=== PATIENT | male | born 1935 | race Caucasian/White ===

== ENCOUNTER 2018-08-27 10:00 | Outpatient (RCR) | payer MEDICARE | END 2018-08-27 11:00 | disposition home or self-care (01) | LOC: SPEECH 10:00 | DX: R13.12 Dysphagia, oropharyngeal phase (principal) | CPT/HCPCS: G8997-GN ==

== ENCOUNTER 2019-01-30 19:06 | Inpatient (IN) | payer MEDICARE ==
[~2019-01-30] VITALS: Ht 180.3 cm; Wt 90.0 kg
[2019-01-31] MEDS ORDERED: BACITRACIN3.5 GM OP (13:42)
[2019-01-31] MEDS ORDERED: CASTOR OIL 1 ML1 ML TOP (13:45)
[2019-01-31] MEDS ORDERED: ACETAMINOPHEN-H1 TA2 PO (13:47)
[2019-01-31] MEDS ORDERED: TOPROL XL 25MG25 MG PO (13:47)
[2019-01-31] MEDS ORDERED: ASPIRIN 81M81 MG/TA2 PO (13:51)
[2019-01-31] MEDS ORDERED: LIPITOR 10M10 MG/TAB PO (13:52)
[2019-01-31] MEDS ORDERED: PROSCAR PO (13:54)
[2019-01-31] MEDS ORDERED: CALCIUM PLUS1 TA1 PO (13:54)
[2019-01-31] MEDS ORDERED: COZAAR100 MG PO (13:55)
[2019-01-31] MEDS ORDERED: INTUNIV2 MG PO (13:55)
[2019-01-31] MEDS ORDERED: DITROPAN XL 5MG5 M1 PO (13:56)
[2019-01-31] MEDS ORDERED: VITAMIN C PURE500 M1 PO (13:57)
[2019-01-31 16:42] LABS: EOS # 0.2 (0.04-0.40); EOS % 1.4 % (0.0-4.0); HEMATOCRIT 27.6 % (42.0-52.0); HEMOGLOBIN 8.7 g/dL (13.5-18.0); LYMPH# 1.6 (1.50-4.00); MEAN CELL VOLUME 94 fl (78-100); MEAN CORPUSCULAR HEMOGLOBIN 30 pg (27-31); MEAN CORPUSCULAR HGB CONC 32 g/dL (33-37); MEAN PLATELET VOLUME 11.2 fl (7.4-10.4); MONO # 0.8 (0.20-0.80); PLATELET COUNT 204 K/mm3 (130-400); RED BLOOD COUNT 2.95 M/mm3 (4.20-5.60); RED CELL DISTRIBUTION WIDTH 16.5 % (11.5-14.5); WHITE BLOOD COUNT 12.5 K/mm3 (4.8-10.8)
[2019-01-31 16:43] LABS: NEU # 9.6 (1.40-6.50)
[2019-01-31 16:52] LABS: ALBUMIN 2.3 g/dL (3.4-4.8); POTASSIUM 3.8 mmol/L (3.5-5.1)
[2019-01-31 16:53] LABS: CALCIUM 7.8 mg/dL (8.3-10.5)
[2019-01-31 16:55] LABS: TOTAL PROTEIN 4.8 g/dL (6.2-8.1)
[2019-01-31 16:56] LABS: TOTAL BILIRUBIN 4.3 mg/dL (0.2-1.2)
[2019-01-31 17:40] VITALS: BP 127/69
[2019-01-31 17:59] LABS: URINE APPEARANCE CLOUDY; URINE BILIRUBIN 2+ (NEGATIVE); URINE BLOOD 250 ery/uL (NEGATIVE); URINE COLOR AMBER; URINE GLUCOSE NEGATIVE (NEGATIVE); URINE KETONE NEGATIVE (NEGATIVE); URINE LEUKOCYTE ESTERASE 2+ (NEGATIVE); URINE NITRATE NEGATIVE (NEGATIVE); URINE PROTEIN(semi-quant) 1+ mg/dL (NEGATIVE); URINE UROBILINOGEN 12 mg/dL (NORMAL)
[2019-01-31 18:00] LABS: URINE WBC >50 /hpf (0-3)
[2019-01-31 18:21] VITALS: BP 111/66
[2019-01-31 20:32] LABS: DIRECT BILIRUBIN 1.7 mg/dL (0.0-0.5)
[2019-02-01 06:35] VITALS: BP 120/64
[2019-02-01 16:20] LABS: HEMATOCRIT 26.6 % (42.0-52.0); HEMOGLOBIN 8.1 g/dL (13.5-18.0); MEAN CELL VOLUME 93 fl (78-100); MEAN CORPUSCULAR HEMOGLOBIN 28 pg (27-31); MEAN CORPUSCULAR HGB CONC 31 g/dL (33-37); MEAN PLATELET VOLUME 10.9 fl (7.4-10.4); PLATELET COUNT 228 K/mm3 (130-400); RED BLOOD COUNT 2.85 M/mm3 (4.20-5.60); RED CELL DISTRIBUTION WIDTH 16.4 % (11.5-14.5); WHITE BLOOD COUNT 10.7 K/mm3 (4.8-10.8)
[2019-02-01 16:37] LABS: ALBUMIN 2.1 g/dL (3.4-4.8); POTASSIUM 3.8 mmol/L (3.5-5.1)
[2019-02-01 16:38] LABS: CALCIUM 7.7 mg/dL (8.3-10.5)
[2019-02-01 16:40] LABS: TOTAL PROTEIN 4.6 g/dL (6.2-8.1)
[2019-02-01 16:41] LABS: TOTAL BILIRUBIN 2.8 mg/dL (0.2-1.2)
[2019-02-01 17:07] LABS: LYMPHOCYTE 8 % (20-51); MONOCYTE 8 % (3-10); NEUTROPHILS 80 % (42-75)
[2019-02-01 18:30] VITALS: BP 96/57
[2019-02-02] VITALS (19 sets, daily range): BP systolic 97–124; BP diastolic 44–63
[2019-02-02 06:26] LABS: EOS # 0.2 (0.04-0.40); EOS % 2.3 % (0.0-4.0); HEMATOCRIT 25.1 % (42.0-52.0); LYMPH# 1.5 (1.50-4.00); MEAN CELL VOLUME 93 fl (78-100); MEAN CORPUSCULAR HEMOGLOBIN 29 pg (27-31); MEAN CORPUSCULAR HGB CONC 31 g/dL (33-37); MEAN PLATELET VOLUME 11.2 fl (7.4-10.4); MONO # 0.8 (0.20-0.80); NEU # 7.3 (1.40-6.50); PLATELET COUNT 237 K/mm3 (130-400); WHITE BLOOD COUNT 9.9 K/mm3 (4.8-10.8)
[2019-02-02 06:30] LABS: HEMOGLOBIN 7.7 g/dL (13.5-18.0)
[2019-02-02 06:42] LABS: POTASSIUM 3.9 mmol/L (3.5-5.1)
[2019-02-02 06:43] LABS: CALCIUM 7.2 mg/dL (8.3-10.5)
[2019-02-02 06:44] LABS: TOTAL PROTEIN 3.9 g/dL (6.2-8.1)
[2019-02-02 06:46] LABS: TOTAL BILIRUBIN 2.6 mg/dL (0.2-1.2)
[2019-02-03 06:34] VITALS: BP 115/64
[2019-02-03 07:45] LABS: EOS # 0.2 (0.04-0.40); EOS % 1.9 % (0.0-4.0); HEMATOCRIT 30.3 % (42.0-52.0); HEMOGLOBIN 9.7 g/dL (13.5-18.0); LYMPH# 1.4 (1.50-4.00); MEAN CELL VOLUME 90 fl (78-100); MEAN CORPUSCULAR HEMOGLOBIN 29 pg (27-31); MEAN CORPUSCULAR HGB CONC 32 g/dL (33-37); MEAN PLATELET VOLUME 10.7 fl (7.4-10.4); NEU # 5.9 (1.40-6.50); PLATELET COUNT 268 K/mm3 (130-400); RED BLOOD COUNT 3.38 M/mm3 (4.20-5.60); RED CELL DISTRIBUTION WIDTH 17.1 % (11.5-14.5); WHITE BLOOD COUNT 8.6 K/mm3 (4.8-10.8)
[2019-02-03 07:52] LABS: ALBUMIN 2.1 g/dL (3.4-4.8)
[2019-02-03 07:55] LABS: TOTAL PROTEIN 4.7 g/dL (6.2-8.1)
[2019-02-03 07:57] LABS: TOTAL BILIRUBIN 3.6 mg/dL (0.2-1.2)
[2019-02-03 18:30] VITALS: BP 121/69
[2019-02-04 06:19] VITALS: BP 157/73
[2019-02-04 11:44] LABS: URINE APPEARANCE CLOUDY; URINE BILIRUBIN NEGATIVE (NEGATIVE); URINE BLOOD 250 ery/uL (NEGATIVE); URINE COLOR YELLOW; URINE GLUCOSE NEGATIVE (NEGATIVE); URINE KETONE NEGATIVE (NEGATIVE); URINE LEUKOCYTE ESTERASE NEGATIVE (NEGATIVE); URINE NITRATE NEGATIVE (NEGATIVE); URINE PROTEIN(semi-quant) 1+ mg/dL (NEGATIVE); URINE UROBILINOGEN NORMAL (NORMAL)
[2019-02-04 13:40] LABS: BASO # 0.1 (0.02-0.10); EOS # 0.1 (0.04-0.40); EOS % 0.8 % (0.0-4.0); HEMATOCRIT 30.8 % (42.0-52.0); HEMOGLOBIN 9.6 g/dL (13.5-18.0); LYMPH# 1.2 (1.50-4.00); MEAN CELL VOLUME 91 fl (78-100); MEAN CORPUSCULAR HEMOGLOBIN 28 pg (27-31); MEAN CORPUSCULAR HGB CONC 31 g/dL (33-37); MEAN PLATELET VOLUME 10.2 fl (7.4-10.4); MONO # 0.8 (0.20-0.80); NEU # 5.5 (1.40-6.50); PLATELET COUNT 343 K/mm3 (130-400); RED BLOOD COUNT 3.39 M/mm3 (4.20-5.60); RED CELL DISTRIBUTION WIDTH 16.8 % (11.5-14.5); WHITE BLOOD COUNT 7.7 K/mm3 (4.8-10.8)
[2019-02-04 13:51] LABS: ALBUMIN 2.2 g/dL (3.4-4.8)
[2019-02-04 13:52] LABS: POTASSIUM 4.4 mmol/L (3.5-5.1)
[2019-02-04 13:53] LABS: CALCIUM 8.1 mg/dL (8.3-10.5)
[2019-02-04 18:35] VITALS: BP 131/72
[2019-02-05 06:21] VITALS: BP 126/68
[2019-02-05 19:01] VITALS: BP 132/74
[2019-02-06 06:24] VITALS: BP 110/61
[2019-02-06 18:32] VITALS: BP 123/67
[2019-02-07 06:20] VITALS: BP 104/61
[2019-02-07 18:38] VITALS: BP 119/70
[2019-02-08 06:20] VITALS: BP 119/56
[2019-02-08 10:41] LABS: BASO # 0.1 (0.02-0.10); EOS # 0.2 (0.04-0.40); EOS % 2.5 % (0.0-4.0); HEMATOCRIT 31.3 % (42.0-52.0); HEMOGLOBIN 9.5 g/dL (13.5-18.0); LYMPH# 1.4 (1.50-4.00); MEAN CELL VOLUME 93 fl (78-100); MEAN CORPUSCULAR HEMOGLOBIN 28 pg (27-31); MEAN CORPUSCULAR HGB CONC 30 g/dL (33-37); MEAN PLATELET VOLUME 9.8 fl (7.4-10.4); MONO # 0.6 (0.20-0.80); NEU # 3.6 (1.40-6.50); PLATELET COUNT 487 K/mm3 (130-400); RED BLOOD COUNT 3.36 M/mm3 (4.20-5.60); RED CELL DISTRIBUTION WIDTH 16.1 % (11.5-14.5); WHITE BLOOD COUNT 5.9 K/mm3 (4.8-10.8)
[2019-02-08 11:04] LABS: ALBUMIN 2.4 g/dL (3.4-4.8)
[2019-02-08 11:05] LABS: POTASSIUM 4.3 mmol/L (3.5-5.1)
[2019-02-08 11:06] LABS: CALCIUM 8.5 mg/dL (8.3-10.5)
[2019-02-08 11:07] LABS: TOTAL PROTEIN 5.8 g/dL (6.2-8.1)
[2019-02-08 11:09] LABS: TOTAL BILIRUBIN 1.6 mg/dL (0.2-1.2)
[2019-02-08 18:30] VITALS: BP 109/64
[2019-02-09 06:17] VITALS: BP 123/67
[2019-02-09 18:42] VITALS: BP 104/65
[2019-02-10 06:08] VITALS: BP 130/66
[2019-02-10 18:38] VITALS: BP 124/62
[2019-02-11 05:39] LABS: HEMATOCRIT 32.8 % (42.0-52.0); HEMOGLOBIN 9.9 g/dL (13.5-18.0); MEAN CELL VOLUME 93 fl (78-100); MEAN CORPUSCULAR HEMOGLOBIN 28 pg (27-31); MEAN CORPUSCULAR HGB CONC 30 g/dL (33-37); MEAN PLATELET VOLUME 9.1 fl (7.4-10.4); PLATELET COUNT 492 K/mm3 (130-400); RED BLOOD COUNT 3.51 M/mm3 (4.20-5.60); RED CELL DISTRIBUTION WIDTH 15.9 % (11.5-14.5); WHITE BLOOD COUNT 5.4 K/mm3 (4.8-10.8)
[2019-02-11 05:53] LABS: ALBUMIN 2.5 g/dL (3.4-4.8); POTASSIUM 4.1 mmol/L (3.5-5.1)
[2019-02-11 05:54] LABS: CALCIUM 8.8 mg/dL (8.3-10.5)
[2019-02-11 05:55] LABS: TOTAL PROTEIN 5.7 g/dL (6.2-8.1)
[2019-02-11 05:57] LABS: TOTAL BILIRUBIN 1.2 mg/dL (0.2-1.2)
[2019-02-11 06:10] LABS: LYMPHOCYTE 31 % (20-51); MONOCYTE 15 % (3-10); NEUTROPHILS 51 % (42-75); OVALOCYTES 1+
[2019-02-11 06:22] VITALS: BP 134/68
[2019-02-11 18:22] VITALS: BP 129/72
[2019-02-12 06:18] VITALS: BP 138/63
[2019-02-12 18:36] VITALS: BP 110/62
[2019-02-13 06:26] VITALS: BP 136/72
[2019-02-13 12:04] LABS: PH-URINE 6.5 (5.0 - 8.0); URINE APPEARANCE CLEAR; URINE BILIRUBIN NEGATIVE (NEGATIVE); URINE BLOOD NEGATIVE (NEGATIVE); URINE COLOR YELLOW; URINE GLUCOSE NEGATIVE (NEGATIVE); URINE KETONE NEGATIVE (NEGATIVE); URINE LEUKOCYTE ESTERASE NEGATIVE (NEGATIVE); URINE NITRATE NEGATIVE (NEGATIVE); URINE PROTEIN(semi-quant) NEGATIVE (NEGATIVE); URINE UROBILINOGEN NORMAL (NORMAL)
[2019-02-13 18:39] VITALS: BP 108/63
[2019-02-14 06:07] VITALS: BP 122/72
[2019-02-14 08:15] LABS: EOS # 0.1 (0.04-0.40); EOS % 2.2 % (0.0-4.0); HEMATOCRIT 33.3 % (42.0-52.0); HEMOGLOBIN 9.9 g/dL (13.5-18.0); LYMPH# 1.8 (1.50-4.00); MEAN CELL VOLUME 94 fl (78-100); MEAN CORPUSCULAR HEMOGLOBIN 28 pg (27-31); MEAN CORPUSCULAR HGB CONC 30 g/dL (33-37); MEAN PLATELET VOLUME 9.5 fl (7.4-10.4); MONO # 0.8 (0.20-0.80); NEU # 3.4 (1.40-6.50); PLATELET COUNT 469 K/mm3 (130-400); RED BLOOD COUNT 3.56 M/mm3 (4.20-5.60); WHITE BLOOD COUNT 6.2 K/mm3 (4.8-10.8)
[2019-02-14 08:23] LABS: ALBUMIN 2.7 g/dL (3.4-4.8)
[2019-02-14 08:24] LABS: POTASSIUM 4.5 mmol/L (3.5-5.1)
[2019-02-14 08:25] LABS: CALCIUM 8.9 mg/dL (8.3-10.5)
[2019-02-14 08:26] LABS: TOTAL PROTEIN 6.7 g/dL (6.2-8.1)
[2019-02-14 08:28] LABS: TOTAL BILIRUBIN 0.9 mg/dL (0.2-1.2)
[2019-02-14 18:57] VITALS: BP 103/59
[2019-02-15 06:07] VITALS: BP 127/71
[2019-02-15 18:00] VITALS: BP 100/64
[2019-02-16 06:13] VITALS: BP 130/72
[2019-02-16 18:58] VITALS: BP 97/64
[2019-02-17 06:21] VITALS: BP 124/70
[2019-02-17 06:28] LABS: HEMOGLOBIN 10.6 g/dL (13.5-18.0); MEAN CELL VOLUME 92 fl (78-100); MEAN CORPUSCULAR HEMOGLOBIN 29 pg (27-31); MEAN CORPUSCULAR HGB CONC 31 g/dL (33-37); MEAN PLATELET VOLUME 9.7 fl (7.4-10.4); PLATELET COUNT 403 K/mm3 (130-400); RED BLOOD COUNT 3.68 M/mm3 (4.20-5.60); RED CELL DISTRIBUTION WIDTH 16.2 % (11.5-14.5); WHITE BLOOD COUNT 5.6 K/mm3 (4.8-10.8)
[2019-02-17 06:48] LABS: ALBUMIN 2.9 g/dL (3.4-4.8); POTASSIUM 4.4 mmol/L (3.5-5.1)
[2019-02-17 06:51] LABS: TOTAL PROTEIN 6.8 g/dL (6.2-8.1)
[2019-02-17 06:52] LABS: TOTAL BILIRUBIN 0.9 mg/dL (0.2-1.2)
[2019-02-17 07:30] LABS: LYMPHOCYTE 45 % (20-51); MONOCYTE 18 % (3-10); NEUTROPHILS 33 % (42-75)
[2019-02-17 18:00] VITALS: BP 109/66
[2019-02-18 06:21] VITALS: BP 119/65
[2019-02-18 18:23] VITALS: BP 95/57
[2019-02-19 06:14] VITALS: BP 132/71
[2019-02-19 18:54] VITALS: BP 112/63
[2019-02-20 06:16] VITALS: BP 120/70
[2019-02-20 07:39] LABS: HEMATOCRIT 34.5 % (42.0-52.0); HEMOGLOBIN 10.6 g/dL (13.5-18.0); MEAN CELL VOLUME 94 fl (78-100); MEAN CORPUSCULAR HEMOGLOBIN 29 pg (27-31); MEAN CORPUSCULAR HGB CONC 31 g/dL (33-37); PLATELET COUNT 327 K/mm3 (130-400); RED BLOOD COUNT 3.69 M/mm3 (4.20-5.60); RED CELL DISTRIBUTION WIDTH 16.1 % (11.5-14.5); WHITE BLOOD COUNT 5.1 K/mm3 (4.8-10.8)
[2019-02-20 07:49] LABS: CALCIUM 9.3 mg/dL (8.3-10.5)
[2019-02-20 07:50] LABS: TOTAL PROTEIN 6.9 g/dL (6.2-8.1)
[2019-02-20 07:52] LABS: TOTAL BILIRUBIN 0.8 mg/dL (0.2-1.2)
[2019-02-20 08:15] LABS: BAND 3 % (0-10); LYMPHOCYTE 47 % (20-51); NEUTROPHILS 31 % (42-75)
[2019-02-20 08:16] LABS: MONOCYTE 13 % (3-10)
[2019-02-20 18:21] VITALS: BP 95/60
[2019-02-21 06:20] VITALS: BP 125/67
[2019-02-21 18:32] VITALS: BP 110/63
[2019-02-22 06:22] VITALS: BP 143/71
[2019-02-22 18:46] VITALS: BP 104/58
[2019-02-23 06:21] VITALS: BP 137/76
[2019-02-23 06:26] LABS: HEMATOCRIT 35.9 % (42.0-52.0); MEAN CELL VOLUME 94 fl (78-100); MEAN CORPUSCULAR HEMOGLOBIN 29 pg (27-31); MEAN CORPUSCULAR HGB CONC 31 g/dL (33-37); MEAN PLATELET VOLUME 10.3 fl (7.4-10.4); PLATELET COUNT 272 K/mm3 (130-400); RED BLOOD COUNT 3.83 M/mm3 (4.20-5.60); WHITE BLOOD COUNT 5.9 K/mm3 (4.8-10.8)
[2019-02-23 06:31] LABS: ALBUMIN 3.2 g/dL (3.4-4.8); POTASSIUM 4.4 mmol/L (3.5-5.1)
[2019-02-23 06:32] LABS: CALCIUM 9.2 mg/dL (8.3-10.5)
[2019-02-23 06:33] LABS: TOTAL PROTEIN 7.1 g/dL (6.2-8.1)
[2019-02-23 06:35] LABS: TOTAL BILIRUBIN 0.8 mg/dL (0.2-1.2)
[2019-02-23 06:43] LABS: LYMPHOCYTE 44 % (20-51); MONOCYTE 6 % (3-10); NEUTROPHILS 47 % (42-75)
[2019-02-23 18:19] VITALS: BP 99/54
[2019-02-24 06:19] VITALS: BP 126/79
[2019-02-24 18:25] VITALS: BP 106/52
[2019-02-25 06:17] VITALS: BP 131/66
[2019-02-25 17:56] VITALS: BP 120/61
[2019-02-26 06:21] VITALS: BP 114/66
[2019-02-26 06:33] LABS: HEMATOCRIT 32.8 % (42.0-52.0); HEMOGLOBIN 10.3 g/dL (13.5-18.0); MEAN CELL VOLUME 94 fl (78-100); MEAN CORPUSCULAR HEMOGLOBIN 30 pg (27-31); MEAN CORPUSCULAR HGB CONC 31 g/dL (33-37); PLATELET COUNT 224 K/mm3 (130-400); RED BLOOD COUNT 3.48 M/mm3 (4.20-5.60); RED CELL DISTRIBUTION WIDTH 16.1 % (11.5-14.5); WHITE BLOOD COUNT 5.3 K/mm3 (4.8-10.8)
[2019-02-26 06:48] LABS: POTASSIUM 4.4 mmol/L (3.5-5.1)
[2019-02-26 06:50] LABS: TOTAL PROTEIN 6.4 g/dL (6.2-8.1)
[2019-02-26 06:52] LABS: TOTAL BILIRUBIN 0.8 mg/dL (0.2-1.2)
[2019-02-26 06:53] LABS: LYMPHOCYTE 38 % (20-51); MONOCYTE 10 % (3-10); NEUTROPHILS 48 % (42-75)
[2019-02-26 18:45] VITALS: BP 106/57
[2019-02-27 06:24] VITALS: BP 128/66
[2019-02-27 18:16] VITALS: BP 115/64
[2019-02-28 06:20] VITALS: BP 149/70
[2019-02-28 18:28] VITALS: BP 115/64
[2019-03-01 06:12] VITALS: BP 125/67
[2019-03-01 18:40] VITALS: BP 110/64
[2019-03-02 06:21] VITALS: BP 136/69
[2019-03-02 18:13] VITALS: BP 118/61
[2019-03-03 06:10] VITALS: BP 143/69
[2019-03-03 18:00] VITALS: BP 139/73
[2019-03-04 06:15] VITALS: BP 128/72
[2019-03-04 18:40] VITALS: BP 115/68
[2019-03-05 06:19] VITALS: BP 141/78
[2019-03-05 18:35] VITALS: BP 117/61
[2019-03-06 06:17] VITALS: BP 158/69
[2019-03-06 19:01] VITALS: BP 123/61
[2019-03-07 06:16] VITALS: BP 127/67
[2019-03-07 18:40] VITALS: BP 101/63
[2019-03-08 06:17] VITALS: BP 114/54
[2019-03-08 18:55] VITALS: BP 116/60
[2019-03-09 06:13] VITALS: BP 135/70
[2019-03-09 06:29] LABS: ALBUMIN 3.4 g/dL (3.4-4.8); POTASSIUM 4.1 mmol/L (3.5-5.1)
[2019-03-09 06:30] LABS: CALCIUM 9.6 mg/dL (8.3-10.5)
[2019-03-09 06:32] LABS: TOTAL PROTEIN 6.6 g/dL (6.2-8.1)
[2019-03-09 06:33] LABS: TOTAL BILIRUBIN 0.6 mg/dL (0.2-1.2)
[2019-03-09 06:41] LABS: EOS # 0.2 (0.04-0.40); EOS % 4.1 % (0.0-4.0); HEMATOCRIT 37.7 % (42.0-52.0); HEMOGLOBIN 11.8 g/dL (13.5-18.0); LYMPH# 2.1 (1.50-4.00); MEAN CELL VOLUME 95 fl (78-100); MEAN CORPUSCULAR HEMOGLOBIN 30 pg (27-31); MEAN CORPUSCULAR HGB CONC 31 g/dL (33-37); MEAN PLATELET VOLUME 10.5 fl (7.4-10.4); MONO # 0.6 (0.20-0.80); NEU # 2.7 (1.40-6.50); PLATELET COUNT 227 K/mm3 (130-400); RED BLOOD COUNT 3.98 M/mm3 (4.20-5.60); RED CELL DISTRIBUTION WIDTH 15.5 % (11.5-14.5); WHITE BLOOD COUNT 5.6 K/mm3 (4.8-10.8)
[2019-03-09 19:14] VITALS: BP 134/71
[2019-03-10 06:22] VITALS: BP 128/71
[2019-03-10 17:54] VITALS: BP 134/73
[2019-03-11 06:21] VITALS: BP 135/61
[2019-03-11 18:34] VITALS: BP 129/57
[2019-03-12 06:26] VITALS: BP 110/50
[2019-03-12 18:32] VITALS: BP 120/67
[2019-03-13 06:15] VITALS: BP 117/61
[2019-03-13 18:50] VITALS: BP 101/62
[2019-03-14 06:44] VITALS: BP 120/67
[2019-03-14 18:39] VITALS: BP 134/65
[2019-03-15 06:21] VITALS: BP 130/77
[2019-03-15 18:33] VITALS: BP 109/63
[2019-03-16 06:04] VITALS: BP 120/68
[2019-03-16 17:13] VITALS: BP 120/67
[2019-03-17 06:32] VITALS: BP 143/76
[2019-03-17 19:27] VITALS: BP 116/63
[2019-03-18 06:23] VITALS: BP 118/71
[2019-03-18 19:20] VITALS: BP 101/57
[2019-03-19 06:26] VITALS: BP 143/74
[2019-03-19 18:00] VITALS: BP 101/62
[2019-03-20 06:12] VITALS: BP 109/67
[2019-03-20 18:59] VITALS: BP 115/64
[2019-03-21 06:22] VITALS: BP 142/69
[2019-03-21 18:52] VITALS: BP 110/67
[2019-03-22 06:04] VITALS: BP 143/70
[2019-03-22 19:35] VITALS: BP 142/74
[2019-03-23 06:13] VITALS: BP 146/68
[2019-03-23 09:25] LABS: EOS # 0.2 (0.04-0.40); EOS % 2.9 % (0.0-4.0); HEMATOCRIT 44.9 % (42.0-52.0); HEMOGLOBIN 14.1 g/dL (13.5-18.0); MEAN CELL VOLUME 94 fl (78-100); MEAN CORPUSCULAR HEMOGLOBIN 29 pg (27-31); MEAN CORPUSCULAR HGB CONC 31 g/dL (33-37); MONO # 0.6 (0.20-0.80); NEU # 3.1 (1.40-6.50); PLATELET COUNT 269 K/mm3 (130-400); RED CELL DISTRIBUTION WIDTH 14.8 % (11.5-14.5)
[2019-03-23 09:40] LABS: ALBUMIN 3.9 g/dL (3.4-4.8); POTASSIUM 4.7 mmol/L (3.5-5.1)
[2019-03-23 09:41] LABS: CALCIUM 10.1 mg/dL (8.3-10.5)
[2019-03-23 09:43] LABS: TOTAL PROTEIN 7.7 g/dL (6.2-8.1)
[2019-03-23 09:44] LABS: TOTAL BILIRUBIN 0.7 mg/dL (0.2-1.2)
[2019-03-23 18:30] VITALS: BP 109/66
[2019-03-24 06:20] VITALS: BP 132/68
[2019-03-24 18:23] VITALS: BP 107/64
[2019-03-25 06:19] VITALS: BP 129/74
[2019-03-25 18:00] VITALS: BP 102/62
[2019-03-26 06:22] VITALS: BP 132/78
[2019-03-26 18:44] VITALS: BP 116/60
[2019-03-27 06:16] VITALS: BP 129/61
[2019-03-27 19:01] VITALS: BP 101/58
[2019-03-28 06:22] VITALS: BP 149/77
[2019-03-28 18:14] VITALS: BP 111/57
[2019-03-29 06:04] VITALS: BP 148/82
[2019-03-29 18:00] VITALS: BP 113/67
[2019-03-30 06:26] VITALS: BP 151/76
[2019-03-30 16:53] VITALS: BP 101/62
[2019-03-31 06:16] VITALS: BP 116/64
[2019-03-31 18:26] VITALS: BP 114/64
[2019-04-01 06:17] VITALS: BP 116/59
[2019-04-01 18:30] VITALS: BP 116/58
[2019-04-02 06:28] VITALS: BP 132/69
[2019-04-02 19:10] VITALS: BP 118/67
[2019-04-03 06:23] VITALS: BP 132/66
[2019-04-03 18:56] VITALS: BP 117/64
[2019-04-04 06:24] VITALS: BP 147/82
[2019-04-04 17:55] VITALS: BP 112/68
[2019-04-05 06:31] VITALS: BP 148/75
[2019-04-05 18:24] VITALS: BP 118/69
[2019-04-06 06:08] VITALS: BP 115/67
[2019-04-06 18:00] VITALS: BP 145/76
[2019-04-07 06:27] VITALS: BP 129/66
[2019-04-07 18:00] VITALS: BP 128/65
[2019-04-08 06:20] VITALS: BP 119/67
[2019-04-08 18:00] VITALS: BP 113/60
[2019-04-09 06:28] VITALS: BP 149/68
[2019-04-09 18:12] VITALS: BP 112/64
[2019-04-10 06:23] VITALS: BP 143/71
[2019-04-10 18:43] VITALS: BP 114/56
[2019-04-11 06:16] VITALS: BP 127/67
[2019-04-11 18:00] VITALS: BP 136/72
[2019-04-12 06:20] VITALS: BP 133/70
[2019-04-12 18:00] VITALS: BP 128/70
[2019-04-13 06:28] VITALS: BP 133/71
[2019-04-13 18:58] VITALS: BP 108/55
[2019-04-14 06:33] VITALS: BP 147/65
[2019-04-14 18:38] VITALS: BP 108/66
[2019-04-15 06:06] VITALS: BP 136/76
[2019-04-15 17:02] VITALS: BP 123/63
[2019-04-16 06:23] VITALS: BP 147/66
[2019-04-16 18:01] VITALS: BP 125/73
[2019-04-17 06:19] VITALS: BP 147/65
[2019-04-17 18:53] VITALS: BP 128/68
[2019-04-18 06:19] VITALS: BP 133/71
[2019-04-18 19:02] VITALS: BP 118/72
[2019-04-19 06:23] VITALS: BP 144/69
[2019-04-19 18:48] VITALS: BP 123/66
[2019-04-20 06:25] VITALS: BP 131/64
[2019-04-20 18:13] VITALS: BP 118/63
[2019-04-21 06:01] VITALS: BP 144/75
[2019-04-21 18:52] VITALS: BP 117/67
[2019-04-22 06:19] VITALS: BP 127/65
[2019-04-22 18:25] VITALS: BP 108/63
[2019-04-23 06:06] VITALS: BP 153/66
[2019-04-23 18:26] VITALS: BP 118/63
[2019-04-24 06:12] VITALS: BP 123/68
[2019-04-24 18:08] VITALS: BP 124/70
[2019-04-25 06:03] VITALS: BP 127/66
[2019-04-25 18:06] VITALS: BP 133/74
[2019-04-26 06:06] VITALS: BP 141/74
[2019-04-26 18:23] VITALS: BP 111/58
[2019-04-27 06:28] VITALS: BP 121/64
[2019-04-27 18:20] VITALS: BP 117/66
[2019-04-28 06:20] VITALS: BP 137/73
[2019-04-28 18:35] VITALS: BP 121/60
[2019-04-29 06:02] VITALS: BP 149/72
[2019-04-29] MEDS ORDERED: FLOMAX0.4 MG PO (08:37)
[2019-04-29] MEDS ORDERED: ACETAMINOPHEN-H1 TA2 PO (08:38)
[2019-04-29] MEDS ORDERED: TENEX 1MG TA1 MG/TAB PO (08:38)
[2019-04-29] MEDS ORDERED: DOCUSATE SOD100 MG PO (08:39)
[2019-04-29] MEDS ORDERED: LOTRIMIN AF90 GM TP (08:40)
[2019-04-29] MEDS ORDERED: HEALTHYLAX17 GM/Dose PO (08:40)
[2019-04-29] MEDS ORDERED: BIOTENE MOIST44.3 ML MM (08:41)
== END 2019-04-29 11:55 | disposition home health service (06) | DRG 560 ==
LOC: MED/SURG 19:06
PROVIDERS: Family Medicine; Nurse Practitioner Primary Care; ADMIT Family Medicine
DX: S42.301D Unspecified fracture of shaft of humerus, right arm, subsequent encounter for fracture with routine healing (principal); R17 Unspecified jaundice; N17.9 Acute kidney failure, unspecified; B37.0 Candidal stomatitis; N39.0 Urinary tract infection, site not specified; L03.116 Cellulitis of left lower limb; L03.011 Cellulitis of right finger; S22.49XD Multiple fractures of ribs, unspecified side, subsequent encounter for fracture with routine healing; S82.891D Other fracture of right lower leg, subsequent encounter for closed fracture with routine healing; S81.812D Laceration without foreign body, left lower leg, subsequent encounter; S41.112D Laceration without foreign body of left upper arm, subsequent encounter; S41.111D Laceration without foreign body of right upper arm, subsequent encounter; D64.9 Anemia, unspecified; B00.9 Herpesviral infection, unspecified; R53.81 Other malaise; W30.89XD Contact with other specified agricultural machinery, subsequent encounter; I10 Essential (primary) hypertension; D11.9 Benign neoplasm of major salivary gland, unspecified; R13.10 Dysphagia, unspecified; K56.41 Fecal impaction; B96.5 Pseudomonas (aeruginosa) (mallei) (pseudomallei) as the cause of diseases classified elsewhere; B96.89 Other specified bacterial agents as the cause of diseases classified elsewhere; Z79.82 Long term (current) use of aspirin
CPT/HCPCS: A4216; J0690; J1650; J1940; J2270; J2543; J7030; J7050; L4386; P9016; Q9967

== ENCOUNTER 2019-08-12 10:30 | Outpatient (RCR) | payer MEDICARE ==
[~2019-08-12 10:30] MED LIST: ACETAMINOPHEN-H1 TA2 PO; ASPIRIN 81M81 MG/TA2 PO; BACITRACIN3.5 GM OP; BIOTENE MOIST44.3 ML MM; CALCIUM PLUS1 TA1 PO; CASTOR OIL 1 ML1 ML TOP; COZAAR100 MG PO; DITROPAN XL 5MG5 M1 PO; DOCUSATE SOD100 MG PO; FLOMAX0.4 MG PO; HEALTHYLAX17 GM/Dose PO; INTUNIV2 MG PO; LIPITOR 10M10 MG/TAB PO; LOTRIMIN AF90 GM TP; PROSCAR PO; TENEX 1MG TA1 MG/TAB PO; TOPROL XL 25MG25 MG PO; VITAMIN C PURE500 M1 PO
== END 2019-08-12 12:00 | disposition still patient (30) ==
LOC: OT 10:30
DX: Z98.890 Other specified postprocedural states (principal)

== ENCOUNTER → 2019-08-25 | Outpatient (CLI) | payer MEDICARE | LOC: RAD 07:24 | DX: M75.100 Unspecified rotator cuff tear or rupture of unspecified shoulder, not specified as traumatic (principal); S43.004S Unspecified dislocation of right shoulder joint, sequela ==

== ENCOUNTER 2020-06-10 11:43 | Emergency (ER) | payer MEDICARE ==
[2020-06-10] MEDS ORDERED: PRILOSEC 20MG20 MG PO (12:01)
[2020-06-10 13:08] VITALS: BP 115/60
== END 2020-06-10 13:08 | disposition home or self-care (01) ==
LOC: ED 11:43
DX: S51.801A Unspecified open wound of right forearm, initial encounter (principal); I10 Essential (primary) hypertension; Z90.49 Acquired absence of other specified parts of digestive tract; Z88.8 Allergy status to other drugs, medicaments and biological substances; Z79.82 Long term (current) use of aspirin; W19.XXXA Unspecified fall, initial encounter
CPT/HCPCS: 90715